=== PATIENT | male | born 1985 ===

== ENCOUNTER → 2019-05-02 | Emergency (ER) | payer OTHER ==
[~2019-05-02] VITALS: Ht 170.2 cm; Wt 88.5 kg
[~2019-05-02] MED LIST: CIPRO500 MG PO; INTESTINEX680 M1 PO; PEPCID40 MG PO; ZOFRAN4 MG PO
== END | disposition home or self-care (01) ==
LOC: ER 20:23
DX: K52.89 Other specified noninfective gastroenteritis and colitis (principal)

== ENCOUNTER 2021-03-28 13:34 | Emergency (ER) | payer OTHER ==
[~2021-03-28] VITALS: Ht 170.2 cm; Wt 83.9 kg
[2021-03-28] MEDS ORDERED: ZITHROMAX500 MG PO (14:23)
== END 2021-03-28 21:46 | disposition home or self-care (01) ==
LOC: ER 13:34
DX: J31.2 Chronic pharyngitis (principal); A90 Dengue fever [classical dengue]; J35.01 Chronic tonsillitis; Z11.52 Encounter for screening for COVID-19